=== PATIENT | male | born 1990 | race Caucasian/White ===

== ENCOUNTER 2016-11-05 18:05 | Emergency (ER) | payer SELFPAY ==
[2016-11-05 18:28] VITALS: BP 138/63
[2016-11-05] MEDS ORDERED: Tetracaine 0.5% OPTH.SOL 4 ML* 1 DROP BTL ONE (18:40)
[2016-11-05] MEDS ORDERED: BSS OPTH.SOL* BTL ONE (18:40)
[2016-11-05] MEDS ORDERED: Fluorescein Sodium TOPICAL* 1 MG TEST ONE (18:40)
[2016-11-05] MEDS ORDERED: HYDROcodone/ACETAMIN 5-325 MG* 1 TAB PO ONE (18:55)
--- NOTE | 2016-11-05 19:06 | UC ---
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 he thinks he must have been exposed to the welding light at work yesterday. denies any FB. pain and burning, tearing of the eye. Patient has been using gentamycin in the eye today. - History of Current Complaint Chief Complaint: UCEye Stated Complaint: RT EYE INJURY-WC Time Seen by Provider: 11/05/16 18:25 Hx Obtained From: Patient Onset/Duration: Sudden Onset, Lasting Hours Timing: Constant Severity Initially: Moderate Severity Currently: Moderate Location of Injury: Eye Lid (lower), Eye Lid (upper), Sclera Character: Dull, Throbbing Aggravating Factor(s): Light, Blinking, Ultraviolet Exposure Alleviating Factor(s): Nothing Associated Signs And Symptoms: Positive: Photophobia, Drainage (Clear) - Risk Factors Penetrating Injury Risk Factor: Negative - Allergies/Home Medications Allergies/Adverse Reactions: Allergies Allergy/AdvReac Type Severity Reaction Status Date / Time hay fever Allergy Congestion Uncoded 11/05/16 18:28 Home Medications: Home Medications Acetaminophen TAB* [Tylenol TAB*] 1,000 mg PO ONCE PRN 11/05/16 [History Confirmed 11/05/16] PMH/Surg Hx/FS Hx/Imm Hx Previously Healthy: Yes - Surgical History Surgical History: Yes Surgery Procedure, Year, and Place: Right inguinal hernia [facility] 2016 - Family History Known Family History: Negative: Cardiac Disease, Hypertension - Social History Alcohol Use: Rare Substance Use Type: Excessive Caffeine Smoking Status (MU): Heavy Every Day Tobacco Smoker - Immunization History Most Recent Tetanus Shot: 2016 Review of Systems Constitutional: Negative Skin: Negative Eyes: Drainage, Eye Redness, Photophobia ENT: Negative Respiratory: Negative Cardiovascular: Negative Gastrointestinal: Negative Genitourinary: Negative Motor: Negative Neurovascular: Negative Musculoskeletal: Negative Neurological: Negative Psychological: Negative All Other Systems Reviewed And Are Negative: Yes Physical Exam Triage Information Reviewed: Yes Appearance: Well-Appearing, Well-Nourished, Pain Distress Vital Signs: Initial Vital Signs Temp 98.2 F 11/05/16 18:17 Pulse 92 11/05/16 18:17 Resp 20 11/05/16 18:17 BP 138/63 11/05/16 18:17 Vital Signs Reviewed: Yes Eye Exam: Normal Eyes: Positive: Conjunctiva Inflamed, Discharge - clear, Other: - sclera diffuse redness, PERRLA, EOMI, ENT Exam: Normal ENT: Positive: Normal ENT inspection, Hearing grossly normal, Pharynx normal, TMs normal Dental Exam: Normal Neck exam: Normal Neck: Positive: Supple, Nontender, No Lymphadenopathy Respiratory Exam: Normal Respiratory: Positive: Chest non-tender, Lungs clear, Normal breath sounds Cardiovascular Exam: Normal Cardiovascular: Positive: RRR, No Murmur, Pulses Normal Abdominal Exam: Normal Abdomen Description: Positive: Nontender, No Organomegaly, Soft Bowel Sounds: Positive: Present Musculoskeletal Exam: Normal Musculoskeletal: Positive: Strength Intact, ROM Intact, No Edema Neurological Exam: Normal Neurological: Positive: Alert, Muscle Tone Normal Psychological Exam: Normal Skin: Positive: significant lesion(s) - flushing around eyes noted, not tender to touch Eye Complaint Course/Dx - Course Course Of Treatment: history obtained, exam performed, meds reviewed, pain meds given, - Differential Dx/Diagnosis Differential Diagnosis/HQI/PQRI: Corneal Abrasion, Keratitis, Penetrating Injury , Uveitis Provider Diagnoses: photokeratitis Discharge - Discharge Plan Condition: Stable Disposition: HOME Prescriptions: HYDROcodone/ACETAMIN 5-325 MG* [[place] 5-325 TAB*] 1 tab PO Q6H PRN #8 tab MDD 20 mg PRN Reason: Pain Patient Education Materials: Corneal Flash Key (ED) Forms: *Work Release
== END 2016-11-05 19:20 | disposition home or self-care (01) ==
LOC: UCCORT 18:05
DX: H16.131 Photokeratitis, right eye (principal); X32.XXXA Exposure to sunlight, initial encounter; Y93.89 Activity, other specified; Y92.9 Unspecified place or not applicable; Y99.0 Civilian activity done for income or pay; F17.210 Nicotine dependence, cigarettes, uncomplicated
CPT/HCPCS: 99202; A9270-GY; G0463